=== PATIENT | male | born 2000 | race Caucasian/White ===

== ENCOUNTER 2023-08-12 05:59 | Emergency (ER) | payer MEDICAID ==
[~2023-08-12] VITALS: Ht 167.6 cm; Wt 64.2 kg
[2023-08-12 06:14] VITALS: O2SAT 100
[2023-08-12] MEDS: TETRACAINE 0.5% OPHTH DROPS 4ML BOTHEYE ONE (07:30)
[2023-08-12] MEDS: FLUORESCEIN SODIUM 1MG/STRIP BOTHEYE ONE (07:30)
[2023-08-12] MEDS ORDERED: ERYT1OIN6 EACHEYE (07:58)
[2023-08-12 08:44] VITALS: BP 134/76; PULSE 63; RESP 17; TEMP 97.9
== END 2023-08-12 08:47 | disposition home or self-care (01) ==
LOC: ER 06:18
DX: H10.213 Acute toxic conjunctivitis, bilateral (principal)
CPT/HCPCS: 99283; Z7610; 99281